=== PATIENT | male | born 1950 | race Caucasian/White ===

== ENCOUNTER 2025-09-16 15:00 | Emergency (ER) | payer OTHER, SELFPAY ==
[2025-09-16] VITALS (8 sets, daily range): BP systolic 110–147; BP diastolic 60–115; BMI 22.3
--- NOTE | 2025-09-16 15:39 | ED.GENMED ---
History of Present Illness
General
Chief Complaint: Fever
Time Seen by Provider: 09/16/25 15:39
History of Present Illness
History of Present Illness:
FOCUSED PAST MEDICAL HISTORY
- CML, hypomagnesemia, CAD, acute on chronic diastolic heart failure
REVIEW OF OLD RECORDS
- No old records available for review in [facility]
- I reviewed records from [facility]: 'DNR', is on [place]
Note:
CHIEF COMPLAINT(S)
Shaking and fever.
HISTORY OF PRESENT ILLNESS
The patient is a 75-year-old male who presented to the emergency department with shaking episodes and a reported fever. He stated that he started shaking after waking up, and this was not a usual occurrence for him. A temperature of 100.6 �F was
measured at the facility he was staying in, which he identifies as '[facility].' He denies any respiratory symptoms such as shortness of breath, cough, or congestion, and reports no urinary symptoms like increased frequency or burning with
urination. Approximately two hours prior to presentation, the patient was told he had tested positive for COVID-19. He was recently moved to [facility] after selling his house and is residing in an independent living apartment where medications are
given to him by staff. He expresses discomfort with needles, almost feeling faint but does not typically pass out.
The patient was cooperative with providing a urine sample and agreed to have blood work done to rule out any serious conditions given his symptoms and COVID-19 diagnosis.
SOCIAL DETERMINANTS AFFECTING HEALTH
The patient recently transitioned to an independent living facility called [facility] after selling his house, indicating a possible change in living conditions and dependency on facility staff for some level of care.
PHYSICAL EXAM
General: Alert, no acute distress. Temp 37.5 �C. Appears somewhat weak and debilitated.
Skin: Warm, dry.
Head: Normocephalic, atraumatic.
Neck: Supple, trachea midline.
Eye, Ears, Nose, Mouth and Throat: Oral mucosa moist.
Cardiovascular: Normal peripheral perfusion, No edema.
Respiratory: Respirations are non-labored.
Gastrointestinal: Abdomen non-distended. Wears a diaper but was able to void spontaneously.
Back: Normal range of motion, Normal alignment.
Musculoskeletal: Normal range of motion, normal strength.
Neurological: Awake and alert
Psychiatric: Cooperative, appropriate mood and affect.
PROBLEM LIST
Acute:
1. Shaking episodes
2. Fever
3. Recent diagnosis of COVID-19
PLAN
1. Obtain blood work to assess for any other potential serious conditions.
2. Conduct a chest X-ray and collect a urine sample for further evaluation.
3. Confirm and review any available records from ' for additional information regarding his health status and recent COVID-19 diagnosis.
4. Monitor patient�s symptom progression and response to initial workup.
DIFFERENTIAL DIAGNOSIS
The Differential Diagnosis includes, in no particular order and is not limited to:
1. COVID-19 infection
2. Fever of unknown origin
3. Possible infection/sepsis
4. Drug or alcohol withdrawal
5. Hyperthyroidism
6. Anxiety or panic attack
7. Neurological disorder such as Parkinsons disease or essential tremor
8. Electrolyte imbalance
9. Medication side effect
10. Delirium or acute confusional state
RADIOLOGY
- Chest x-ray shows no definite sign of pneumonia
LABS
- COVID-positive, white count normal, mild lymphocytopenia noted, no UTI
SUMMARY OF ENCOUNTER
The patient, a 75-year-old male, presented to the emergency department with shaking episodes and fever. He tested positive for COVID-19 approximately two hours prior to his visit. Initial lab work showed a slightly elevated lactic acid level of 2.3,
which later decreased to 1.0 upon repeat testing. The patient denied respiratory and urinary symptoms and appeared well with stable vital signs. Given the lack of significant symptoms upon reassessment, it was determined he could be safely
discharged.
DISPOSITION
The patient will be discharged back to his residence at the [facility], [facility].
REASSESSMENT
On reassessment, the patient showed virtually no symptoms and appeared well.
PATIENT EDUCATION AND COUNSELING
Discussed the COVID-19 diagnosis and current health status with the patient�s sister, updating her on the plan for discharge and ensuring understanding of the need for symptom monitoring.
FOLLOW-UP INSTRUCTIONS
The patient is advised to continue monitoring symptoms and seek medical attention if any changes occur.
MEDICATION RECONCILIATION
No medications were administered or prescribed during the visit.
MEDICAL DECISION MAKING
-Complexity of Problems Addressed: Chronic conditions affecting care include recent diagnosis of COVID-19. Differential diagnosis considered possible infection/sepsis, electrolyte imbalance, medication side effect, and COVID-19 infection.
-Data:
Category 1
Initial lactic acid level was slightly elevated at 2.3, but repeat was 1.0. COVID-19 diagnosis confirmed.
Category 2
Discussion with the patients sister served as an independent historian.
-Risk:
Consideration of Admission/Observation: Escalation of care including admission/observation was considered given the complexity and risk of the patients presenting complaint, exam findings, and/or their underlying comorbidities. However, ultimately
the patient is safe for outpatient management with close follow-up. Reasoning: Work-up reassuring, does not reveal any acute life/organ-threatening processes, patients symptoms well controlled upon reevaluation, reexamination is reassuring, vitals
are stable, patient agreeable with discharge, reliable for follow-up.
DIAGNOSIS
COVID-19 infection (ICD-10: U07.1)
UPDATE
- Vital signs unremarkable on reassessment
- Lactic initially slightly elevated but after IV fluids back down to 1.0
- Virtually no symptoms on reassessment after Tylenol and fluids were given
Phy Exam
Physical Exam
Physical Exam:
See HPI
Course
Orders/Labs/Results
Orders:
Orders
09/16/25 15:49
CR Chest - 2 Views Urgent
Comment:
Reason For Exam: fever
09/16/25 15:52
0.9% Sodium Chloride 500 ml [Nss] 500 ml IV BOLUS
Acetaminophen [Tylenol] 1,000 mg PO NOW STA
09/16/25 16:31
COVID-19 Antigen Urgent
Source: Nasal Swab
Complete Blood Count/With Diff Urgent
Comprehensive Metabolic Panel Urgent
Lactic Acid Q4H
Comment: CANCEL 2nd LACTIC ACID IF 1st LACTIC ACID IS LESS THAN 2
Urinalysis Reflex To Culture Urgent
Date Specimen was Collected: 09/16/25
Time Specimen was Collected: 15:46
Urine Microscopic Reflex Cult Urgent
Blood Culture Q30M
GINGER Source: Blood/Venous
Specimen Description:
Influenza A+B Rapid Molecular Urgent
GINGER Source: Nasal Swab
Specimen Description:
Urine Culture Urgent
GINGER Source: U
Specimen Description:
Date Specimen was Collected: 09/16/25
Time Specimen was Collected: 15:46
09/16/25 18:05
Lactic Acid Urgent
Blood Culture Q30M
GINGER Source: Blood/Venous
Specimen Description:
09/16/25 19:45
Lactic Acid Q4H
Comment: CANCEL 2nd LACTIC ACID IF 1st LACTIC ACID IS LESS THAN 2
Abnormal Lab Results
09/16/25
16:31
RBC 4.09 L 10^6/uL
(4.70-6.10)
MCV 96.1 H fL
(80.0-94.0)
MCH 33.0 H pg
(27.0-31.0)
RDW 14.7 H %
(11.5-14.5)
MPV 11.4 H fL
(7.4-10.4)
Absolute Lymphs (auto) 0.9 L 10^3/uL
(1.2-3.4)
Absolute Monos (auto) 1.6 H 10^3/uL
(0.1-0.6)
Lymphocytes % 11.1 L %
(20.5-51.1)
Monocytes % 19.8 H %
(1.7-9.3)
Chloride 109 H mmol/L
(98-107)
Glucose 119 H mg/dl
(70-99)
Lactic Acid 2.3 H mmol/L
(0.7-2.0)
Ur Occult Blood Reflex 3+ A
(Negative)
Urine RBC 16-20 A /HPF
(0-2)
Urine Bacteria (Reflex) Moderate A
(Negative)
Urine Albumin (Reflex) 2+ A
(Neg - Trace)
SARS-CoV-2 Antigen Positive A
(Negative)
09/16/25 16:31
09/16/25 16:31
Vital Signs
Initial and Last Documented VS:
Initial Vital Signs
Temp Pulse Resp BP Pulse Ox
37.5 C 104 20 110/63 97
09/16/25 15:04 09/16/25 15:04 09/16/25 15:04 09/16/25 15:04 09/16/25 15:04
Last Documented Vital Signs
Temp Pulse Resp BP Pulse Ox
37.5 C 99 15 136/81 95
09/16/25 18:10 09/16/25 18:56 09/16/25 18:56 09/16/25 19:18 09/16/25 19:30
*Pulse Oximetry
SaO2: 97
Oxygen Mode of Delivery: Room air
Patient hypoxic: no
*Critical Care Note
Total Time (30-74mins, 75-104mins- exclusive of procedures): Not Applicable
Update Note
Update Note:
Obese diabetic who cannot walk and cannot safely be discharged to home. I spoke to family here. Over past few days, worsening distal LLE swelling and lateral left foot pain and L foot primarily when he walks. WBC top normal at 10.5, US neg for DVT.
X-ray showed a questionable abnormality at 2nd MTP, but that is not where his pain is. No clear sign of osteomyelitis, but I added a cRP. Family is really pushing for him to stay and consider MRI for further infectious eval which I feel is
reasonable. There is warmth to affected area, but not significant erythema.
ED Attending Note
-
Portions of this chart may have been created with voice recognition software.� Occasional wrong word or��sound alike� substitutions may have occurred due to the inherent limitations of voice recognition software.
Discharge Plan
Departure
Patient Disposition: Home (Routine Discharge)
Date of Disposition: 09/16/25
Time of Disposition: 18:45
Patient with high blood pressure during this ER visit?: Yes
Discharge Problem:
COVID-19
Instructions: COVID-19 in adults (DC), BLOOD PRESSURE
Referrals:
LAMONT OWENS MD [Family Provider, Internal Medicine]
Activity Restrictions/Additional Instructions:
You are testing positive for COVID-19. The initial blood work showed a slightly high lactic acid level but when it was checked after IV fluids were given it was back to normal. There is no sign of a urinary tract infection. The chest x-ray does
not show any clear signs of pneumonia. Your white blood cell count is not elevated. The lymphocyte count is slightly low as can be seen with COVID. I recommend to limit being around others over the next several days.
Interventions
Interventions:
*Risk Screen - Suicide Last Done: 09/16/25 16:39
*General Assessment Last Done: 09/16/25 15:04
*Neglect/Abuse Screening Last Done: 09/16/25 16:39
*ED COVID-19 Vaccine History Last Done: 09/16/25 16:39
*ED Influenza Vaccine History Last Done: 09/16/25 16:39
[facility] Risk Assessment Tool Last Done: 09/16/25 16:39
ED- Neurological Assessment Last Done: 09/16/25 16:39
ED-Skin Assessment Last Done: 09/16/25 16:39
Discharge Date and Time
Print Language: [id number]
[2025-09-16] MEDS: TYLENOL 1000 MG PO (16:16)
[2025-09-16] MEDS: NSS 500 IV (16:30)
[2025-09-16 16:46] LABS: Hematocrit 39.3 % (39.0-52.0); Hemoglobin 13.5 g/dL (13.0-18.0); Mean Corp Hgb Conc. 34.4 g/dL (33.0-37.0); Mean Corpuscular Volume 96.1 fL (80.0-94.0); Nucleated Red Blood Cells % 0 % (-); Platelet Count 275 10^3/uL (130-400); Red Cell Dist. Width 14.7 % (11.5-14.5); Urine Character Clear (Clear)
[2025-09-16 16:54] LABS: Urine Red Blood Cell 16-20 /HPF (0-2); Urine White Cell 0-2 /HPF (0-5)
[2025-09-16 17:02] LABS: ALT (SGPT) 19 U/L (0-50); AST (SGOT) 27 U/L (17-59); Albumin 4.2 g/dl (3.5-5.0); Alkaline Phosphatase 100 U/L (38-126); Blood Urea Nitrogen 20 mg/dl (9-20); Calcium 9.2 mg/dl (8.4-10.2); Carbon Dioxide 22 mmol/L (22-30); Chloride 109 mmol/L (98-107); Estimated Creatinine Clearance 56 ml/min; Glucose 119 mg/dl (70-99); Potassium 4.4 mmol/L (3.5-5.1); Sodium 136 mmol/L (135-145); Total Protein 7.8 g/dl (6.3-8.2); eGFR 58.01
[2025-09-16 17:07] LABS: COVID-19 Antigen Positive (Negative)
== END 2025-09-16 20:05 | disposition home or self-care (01) ==
LOC: EMR 15:00
PROVIDERS: EMERGENCY PHYSICIAN Emergency Medicine; FAMILY PHYSICIAN Internal Medicine
DX: U07.1 COVID-19 (principal); I25.10 Atherosclerotic heart disease of native coronary artery without angina pectoris; I50.33 Acute on chronic diastolic (congestive) heart failure; C92.10 Chronic myeloid leukemia, BCR/ABL-positive, not having achieved remission; Z66 Do not resuscitate
CPT/HCPCS: 96360; 99284; 71046; 80053; 81003; 81015; 83605; 85025; 87040; 87086; 87502; 87811